=== PATIENT | male | born 2000 | race Caucasian/White ===

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

== ENCOUNTER 2021-05-08 13:07 | Emergency (ER) | payer OTHER, MEDICAID ==
[~2021-05-08] VITALS: Ht 177.8 cm; Wt 61.7 kg
[2021-05-08] MEDS ORDERED: AUGMENTIN 875-1 EACH PO (13:18)
[2021-05-08] MEDS ORDERED: NAPROSYN500 MG PO (13:18)
[2021-05-08 13:47] VITALS: BP 150/80
== END 2021-05-08 13:47 | disposition home or self-care (01) ==
LOC: M.ERS 13:07
DX: J02.9 Acute pharyngitis, unspecified (principal); Z86.14 Personal history of Methicillin resistant Staphylococcus aureus infection